=== PATIENT | male | born 1995 | race African-American/Black ===

== ENCOUNTER 2021-01-22 11:59 | Emergency (ER) | payer OTHER ==
[~2021-01-22] VITALS: Ht 175.3 cm; Wt 77.1 kg
[2021-01-22 12:20] VITALS: BP 122/85
== END 2021-01-22 15:40 | disposition left against medical advice (07) ==
LOC: ER 11:59
DX: Z20.6 Contact with and (suspected) exposure to human immunodeficiency virus [HIV] (principal); Z88.2 Allergy status to sulfonamides